=== PATIENT | female | born 1990 | race African-American/Black ===

== ENCOUNTER 2018-04-19 09:04 | Day surgery (SDC) | payer MEDICAID, OTHER ==
[~2018-04-19 09:04] MED LIST: ACETAMINOPHEN 1,000 MG/100 ML INJ IV ONE; DESFLURANE 240 ML LIQUID IH ONE; DEXAMETHASONE SOD PHOS 4 MG/ML VIAL ONE; FAMOTIDINE 20 MG/2 ML VIAL ONE; FENTANYL CITRATE/PF 250 MCG/5 ML INJ. ONE; LACTATED RINGERS 1,000 ML IV.SOLN IV ONE; LIDOCAINE HCL 2% PF 100MG/5ML VIAL IJ ONE; MIDAZOLAM HCL 2 MG/2 ML VIAL ONE; ONDANSETRON HCL/PF 4 MG/ 2ML VIAL ONE; PROPOFOL 200 MG/20 ML VIAL IV ONE; ROCURONIUM BROMIDE 10 MG/ML 5ML VIAL ONE; SCOPOLAMINE HYDROBROMIDE 1.5MG/72HR PATCH TD ONE; SUCCINYLCHOLINE CHLORIDE 20 MG/ML 10ML VIAL ONE; SUGAMMADEX SODIUM 200 MG/2 ML VIAL IV ONE; ceFAZolin SODIUM 1 GM VIAL ONE
[2018-04-19] MEDS ORDERED: LACTATED RINGERS 1,000 ML IV ONE (09:52)
[2018-04-19] MEDS ORDERED: SCOPOLAMINE HYDROBROMIDE 1.5MG/72HR PATCH TD ONE (10:26)
[2018-04-19] MEDS ORDERED: ENOXAPARIN SODIUM 40 MG/0.4 ML DISP.SYRIN SQ ONE (10:26)
[2018-04-19] MEDS ORDERED: LEVALBUTEROL HCL 1.25 MG/3 ML AMPUL.NEB NEB ONE (10:27)
[2018-04-19] MEDS ORDERED: FAMOTIDINE 20 MG/2 ML VIAL ONE (10:27)
[2018-04-19] MEDS ORDERED: HYDROmorphone HCL/PF 2 MG/ML VIAL ONE (14:47)
== END 2018-04-19 16:07 | disposition other institution (70) ==
LOC: OPSURG 09:04
PROVIDERS: ATTEND Surgery
DX: E66.01 Morbid (severe) obesity due to excess calories (principal); Z68.43 Body mass index [BMI] 50.0-59.9, adult; E11.9 Type 2 diabetes mellitus without complications; I10 Essential (primary) hypertension
CPT/HCPCS: 43235; 43775; 81025; 88305; A9270; J0330; J0690; J1100; J1170; J1650; J2001; J2250; J2405; J2704; J7120; J7614; S0028

== ENCOUNTER 2018-04-19 16:08 | Inpatient (IN) | payer MEDICAID, OTHER ==
[2018-04-19] MEDS ORDERED: PROMETHAZINE HCL 25 MG in 0.9 % SODIUM CHLORIDE 50 ML IV PRN (16:12)
[2018-04-19] MEDS ORDERED: HYDROcodone /APAP 10/325 1 EACH TABLET PO PRN (16:12)
[2018-04-19] MEDS ORDERED: LEVALBUTEROL HCL 1.25 MG/3 ML AMPUL.NEB NEB PRN (16:12)
[2018-04-19] MEDS ORDERED: MORPHINE SULFATE 5 MG/ML ML IJ PRN (16:12)
--- NOTE | 2018-04-19 16:26 | History and Physical Report ---
History of Present Illnes - History of Present Illness Reason for Visit: Weight loss surgery History of Present Illness: Patient presented today for gastric sleeve. Surgery went well with no complications. She has tried numerous diets and exercise to lose weight, including phenteramine that she stopped last month. Weight is causing problems with her HTN, DM, and joint pains. - Past Medical History Cardiac: HTN, Other (Echo 01/09 EF 65%) Pulmonary: Asthma (On steroids 12-13 thru 04-10. 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) Endocrine: Diabetes (A1C 6.7 on 03/11) - Past Surgical History Past Surgical History: Other (IUD 2014), Other (wisdom teeth) - Past Family History Mother Family History: Hypertension Father Family History: CAD, DM, Hypertension - Past Social History Smoke: No Alcohol: None Drugs: Marijuana (every 3 months or so) Lives: Alone - Health Maintenance Health Maintenance: Pap Smear Influenza Vaccine: Current for this Influenza Season Pneumonia Vaccine: No Resuscitation Status: Resusciation Status Resuscitation Status Full Code Review of Systems - Review of Systems Constitutional: negative: Fever, Weakness Eyes: negative: pain ENT: negative: Nose Congestion, Throat Pain Respiratory: negative: Cough, Shortness of Breath Cardiovascular: negative: Chest Pain Gastrointestinal: Abdominal Pain. negative: Nausea, Vomiting Genitourinary: negative: Dysuria, Frequency, Incontinence Musculoskeletal: negative: Neck Pain, Shoulder Pain Skin: negative: Rash Neurological: negative: Weakness - Medications/Allergies Allergies/Adverse Reactions: Allergies Allergy/AdvReac Type Severity Reaction Status Date / Time lisinopril Allergy Verified 04/19/18 16:04 sea food Allergy Uncoded 04/19/18 16:04 Current Inpatient Medications: Current Inpatient Medications Acetaminophen (Ofirmev) 1,000 mg IV Q6H PRN PRN Reason: For Mild Breakthrough Pain Stop: 04/23/18 16:11 Cefazolin Sodium/Dextrose (Cefazolin 1 G/50 Ml-Dextrose) 1 gm IV Q8H YEIMY Stop: 04/20/18 05:31 Enoxaparin Sodium (Lovenox) 40 mg SQ QD YEIMY Stop: 05/04/18 10:59 Promethazine HCl 25 mg/ Sodium (Chloride) 51 mls @ 600 mls/hr IV Q6 PRN PRN Reason: Nausea / Vomiting Stop: 04/23/18 16:11 Sodium Chloride (Normal Saline) 1,000 mls @ 150 mls/hr IV Q8H YEIYM Pantoprazole Sodium 40 mg/ (Sodium Chloride) 50 mls @ 100 mls/hr IV DAILY YEIMY Insulin Detemir (Levemir Flex-Pen) 0 unit SQ 0730 YEIMY; Protocol Levalbuterol HCl (Xopenex) 1.25 mg NEB Q4 PRN PRN Reason: SOA, Dyspnea, or Wheezing Stop: 04/23/18 16:11 Miscellaneous (Chem Sticks) 1 each MC Q6H YEIMY Morphine Sulfate (Morphine Sulfate) 4 mg IVP Q4 PRN PRN Reason: Severe Pain Only Ondansetron HCl (Zofran 4 Mg/2 Ml) 4 mg IVP Q6H PRN PRN Reason: Nausea / Vomiting Stop: 04/23/18 16:11 Exam - Exam Vital Signs: Vital Signs (72 hours) 04/19/18 04/19/18 16:12 16:17 Temperature 97.0 F L 97.0 F L Pulse Rate [ 91 H 91 H Left] Respiratory 20 20 Rate Blood Pressure 149/81 149/81 [Left Arm] O2 Sat by Pulse 95 95 Oximetry General: Alert, Oriented to Person, Oriented to Place, Oriented to Time, Cooperative, No acute distress, Morbidly Obese HEENT: Atraumatic, PERRLA, EOMI, Mouth Mucous membr. moist/[place] Neck: Normal Range of Motion Lungs: Clear to auscultation, Normal air movement, Speaks full Sentences Cardiovascular: Regular rate Abdomen: Normal bowel sounds, Soft, Other (5 incisions C/D/I). No: No tenderness Integumentary: Normal Extremities: No edema Neurological: Normal gait, Normal speech, Strength Equal Bilat, Normal tone Psych/Mental Status: Mental status NL, Mood NL, Appropriate Affect, Intact Judgment Assessment/Plan - Assessment/Plan (1) S/P gastric surgery Status: Acute Current Visit: Yes Plan: Will admit for IV hydration and pain control. IS and early/frequent ambulation as well as Lovenox. Follow gastric diet. (2) HTN (hypertension) Status: Chronic Current Visit: Yes Qualifiers: Hypertension type: essential hypertension Qualified Code(s): I10 - Essential (primary) hypertension Plan: Watch BP and adjust meds accordingly. 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 Will follow SSI per PCP suggestions. (4) Asthma Status: Chronic Current Visit: Yes Qualifiers: Asthma severity: mild Asthma persistence: intermittent Asthma complication type: uncomplicated Qualified Code(s): J45.20 - Mild intermittent asthma, uncomplicated Plan: Continue Advair. WAtch closely. VTE Assessment - RISK FACTOR SCORE VTE RISK FACTOR SCORES: MAJOR SURGERY/ANESTHESIA TIME > 1 HOUR - RISK VTE LOW RISK: SCORE OF 1 OR LESS (RISK PROXIMAL DVT 0.4%) NO PROPHYLAXIS NEEDED
[2018-04-19 17:29] VITALS: BMI 52.9
[2018-04-19] MEDS: 0.9 % SODIUM CHLORIDE 1,000 ML IV SCH (18:44)
[2018-04-19] MEDS: FLUTICASONE/SALMETEROL 250-50 INHALER IH SCH (21:03)
[2018-04-19] MEDS: CEFAZOLIN SODIUM/DEXTROSE,ISO 1 GM/50 ML PIGGYBACK IV SCH (21:03)
[2018-04-19] MEDS: ACETAMINOPHEN 1,000 MG/100 ML INJ IV PRN (21:08)
[2018-04-19] MEDS: GABAPENTIN 100 MG CAPSULE PO SCH (22:09)
[2018-04-19] MEDS: ONDANSETRON HCL/PF 4 MG/ 2ML VIAL IVP PRN (23:49)
[2018-04-20] MEDS: 0.9 % SODIUM CHLORIDE 1,000 ML IV SCH ×4 (01:06→22:40)
[2018-04-20] MEDS: ACETAMINOPHEN 1,000 MG/100 ML INJ IV PRN ×2 (03:51→21:33)
[2018-04-20] MEDS: CEFAZOLIN SODIUM/DEXTROSE,ISO 1 GM/50 ML PIGGYBACK IV SCH (05:38)
[2018-04-20] MEDS: ONDANSETRON HCL/PF 4 MG/ 2ML VIAL IVP PRN ×2 (05:54→21:36)
--- NOTE | 2018-04-20 07:45 | Inpatient Progress Note ---
Subjective - Required Recertification Statement I anticipate X number of days because-include discharge plan: 1 - Review of Systems Subjective: Patient feels better this morning. Had some nausea overnight. Koppel she had some mucus in her throat post-op so used a HFN - helped a lot. Objective - Exam Vitals and I&O: Vital Signs Temp 98.0 F 04/20/18 06:18 Pulse 84 04/20/18 06:18 Resp 18 04/20/18 06:18 BP 134/73 04/20/18 06:18 Pulse Ox 96 04/20/18 06:18 Intake & Output 04/19/18 04/19/18 04/20/18 11:59 23:59 11:59 Intake Total 150 1650 Output Total 1400 1225 Balance -1250 425 Weight 148.8 kg Intake: IV 150 1650 Right Wrist 150 1650 Output: Urine 1400 1175 Emesis 50 Other: Voiding Method Toilet Toilet General: Alert, Oriented to Person, Oriented to Place, Oriented to Time, Cooperative, No acute distress Lungs: Clear to auscultation, Normal air movement, Speaks full Sentences Cardiovascular: Regular rate Abdomen: Normal bowel sounds, Soft, No tenderness, Other (Bandages C/D/I.) Assessment/Plan - Assessment/Plan (1) S/P gastric surgery Status: Acute Current Visit: Yes Plan: Doing well. Advance diet as tolerated per protocol. Continue ambulation. PT/OT to assist today. Frequent IS. Lovenox. (2) HTN (hypertension) Status: Chronic Current Visit: Yes Qualifiers: Hypertension type: essential hypertension Qualified Code(s): I10 - Essential (primary) hypertension Plan: BP lower this morning in normal range. Continue current meds. Watch. (3) Diabetes Status: Chronic Current Visit: Yes Qualifiers: Diabetes mellitus type: type 2 Diabetes mellitus long term care pharmacist insulin use: without long term care pharmacist use Diabetes mellitus complication status: without complication Qualified Code(s): E11.9 - Type 2 diabetes mellitus without complications Plan: BS 120-150. No insulin given yet. (4) Asthma Status: Chronic Current Visit: Yes Qualifiers: Asthma severity: mild Asthma persistence: intermittent Asthma complication type: uncomplicated Qualified Code(s): J45.20 - Mild intermittent asthma, uncomplicated
[2018-04-20] MEDS ORDERED: PANTOPRAZOLE SODIUM INJ. 40 MG VIAL ONE (07:48)
[2018-04-20] MEDS ORDERED: 0.9 % SODIUM CHLORIDE 50 ML IV ONE (07:48)
[2018-04-20] MEDS: INSULIN DETEMIR 100 UNIT/ML SQ SCH (07:57)
[2018-04-20] MEDS: FLUTICASONE/SALMETEROL 250-50 INHALER IH SCH ×2 (08:49→20:25)
[2018-04-20] MEDS ORDERED: HYDROCHLOROTHIAZIDE 25 MG TABLET PO SCH (09:00)
[2018-04-20] MEDS ORDERED: amLODIPine BESYLATE 5 MG TABLET PO SCH (09:00)
[2018-04-20] MEDS ORDERED: ATENOLOL 25 MG TABLET PO SCH (09:00)
[2018-04-20] MEDS: GABAPENTIN 100 MG CAPSULE PO SCH ×2 (09:35→20:25)
[2018-04-20] MEDS: PANTOPRAZOLE SODIUM 40 MG in 0.9 % SODIUM CHLORIDE 50 ML IV SCH (09:35)
[2018-04-20] MEDS ORDERED: ENOXAPARIN SODIUM 40 MG/0.4 ML DISP.SYRIN SQ SCH (11:00)
[2018-04-21 07:35] VITALS: BP 115/45
--- NOTE | 2018-04-21 07:47 | Discharge Summary ---
Discharge Summary - Discharge Sumary History of Present Illness: Patient presented today for gastric sleeve. Surgery went well with no complications. She has tried numerous diets and exercise to lose weight, including phenteramine that she stopped last month. Weight is causing problems with her HTN, DM, and joint pains. Condition at Discharge: Stable Home Medications: Ambulatory Orders Medication Instructions Recorded Adalimumab [Humira Pen] 40 mg SQ WEEK 04/19/18 Albuterol Sulfate [Proair HFA] 8.5 gm IH Q4 PRN 04/19/18 Fluticasone/Salmeterol [Advair 1 each INH BID 04/19/18 250-50 Diskus] Gabapentin 400 mg PO TID 04/19/18 Ranitidine HCl 150 mg PO BID 04/19/18 Consultations this Visit: None Procedures this Visit: Other (Sleeve gastrectomy) Allergies/Adverse Reactions: Allergies Allergy/AdvReac Type Severity Reaction Status Date / Time lisinopril Allergy Verified 04/19/18 16:04 sea food Allergy Uncoded 04/19/18 16:04 Patient Problems: Current Active Problems Problem Status Onset S/P gastric surgery Acute Asthma Chronic Diabetes Chronic HTN (hypertension) Chronic Hospital Course: Patient did well s/p sleeve gastrectomy. Her BS remained 130- 90. Insulin will be held on d/c. BP 115 range so antihypertensives also held on discharge. Lovenox, IS, early ambulation, SCD's utilized.
[2018-04-21] MEDS: PANTOPRAZOLE SODIUM 40 MG in 0.9 % SODIUM CHLORIDE 50 ML IV SCH (08:18)
[2018-04-21] MEDS: GABAPENTIN 100 MG CAPSULE PO SCH (08:19)
[2018-04-21] MEDS: FLUTICASONE/SALMETEROL 250-50 INHALER IH SCH (08:19)
[2018-04-21] MEDS: INSULIN DETEMIR 100 UNIT/ML SQ SCH (08:45)
[2018-04-21] MEDS: 0.9 % SODIUM CHLORIDE 1,000 ML IV SCH (09:32)
== END 2018-04-21 10:15 | disposition home or self-care (01) | DRG 641 ==
LOC: SOUTH 16:08
PROVIDERS: ADMIT Nurse Practitioner Family; ATTEND Nurse Practitioner Family
DX: E66.01 Morbid (severe) obesity due to excess calories (principal); Z68.43 Body mass index [BMI] 50.0-59.9, adult; E11.9 Type 2 diabetes mellitus without complications; I10 Essential (primary) hypertension; J45.20 Mild intermittent asthma, uncomplicated
CPT/HCPCS: 99222; 99231; 99232; 99238; J1650; J2405; J7614; J7030